=== PATIENT | male | born 1950 | race Caucasian/White ===

== ENCOUNTER 2018-11-26 06:11 | Day surgery (SDC) | payer MEDICARE, OTHER, SELFPAY ==
[2018-11-26 07:10] VITALS: BP 133/78; PULSE 57; RESP 16; TEMP 36.4; O2SAT 96
--- NOTE | 2018-11-26 07:25 | PM.PREOP ---
Pre-operative Note Interval Note History & Physical reviewed/Exam performed by Physician: Yes Changes to H&P: No
[2018-11-26] MEDS: PROPARACAINE 0.5% OPHTH SOL 2 DROPS EYE-OP (07:27)
[2018-11-26] MEDS: CATARACT EYE COMPOUND (10 DROPS/SYRINGE) 3 DROPS EYE-OP ×3 (07:37→07:47)
[2018-11-26] MEDS: PHENYLEPHRINE/LIDOCAINE VIAL (OR) 0.2 ML EYE-OP (08:11)
[2018-11-26] MEDS: MOXIFLOXACIN OPHTH DROPS 3 ML BOTTLE 2 DROPS INJ (08:11)
[2018-11-26] MEDS: BALANCED SALT IRRIG SOLN NO.2 15 ML 5 ML IRR (08:12)
[2018-11-26] MEDS: CHONDROIDTIN/SOD HYALURONATE 1.05 ML SYRINGE INTRAOCULA (08:12)
[2018-11-26] MEDS: TETRACAINE 0.5% OPHTH DROPS 15 ML 2 DROPS EYE-RIGHT (08:13)
[2018-11-26] MEDS: LIDOCAINE 2% INJ SDV 2 ML INJ (08:13)
[2018-11-26] MEDS: BALANCED SALT IRRIG SOLN NO.2 500 ML, EPINEPHrine 1 MG IRR (08:13)
--- NOTE | 2018-11-26 08:46 | P.OP_ITS ---
Procedure & Clinicians Procedure: Cataract extraction with intraocular lens implant, right Same procedure as scheduled: Yes Indications: Visually significant cortical age related cataract, right Surgeon: Bradford Becker Click Yes if Unassisted: Yes Anesthesia Type: MAC +/- Operative Notes Procedure in detail: The patient was brought to the operating suite. The correct patient, surgical site and lens were confirmed. 0.5 % tetracaine drops were placed in the right eye and the cornea was marked with a corneal reference mar ker. The patient was prepped and draped in the typical sterile manner. A lid speculum was placed in the eye. 2% lidocaine was placed on the eye. A paracentesis port was created with a side-port blade. 0.1 mL of 1% preservative free lidocaine with phenylephrine was injected into the anterior chamber. Viscoelastic was injected into the anterior chamber. A 2.6mm keratome was used to create a clear corneal temporal incision. Cystotome and Utrata forceps were used to create a continuous curvilinear capsulorrhexis. Balanced salt solution was used to hydrodissect the nucleus. Phacoemulsification was used to remove the lens. The capsular bag was inflated with viscoelastic and the cornea was marked at 094 degrees. A Richards ZCT 150+26.0D lens was inserted into the capsule and rotated to 094 degrees. Viscoelastic was removed and the wound hydrated. The wound was found to be leak free and the eye was assessed to be at normal physiologic pressure. 0.1mL Vigamox was injected into the anterior chamber and the lens was confirmed to be centered at at 094 degrees.. The lid speculum was removed and the patient left the operating room in excellent condition. Complications: none Condition: stable Disposition: same day surgery
[2018-11-26 08:47] VITALS: BP 117/67; PULSE 54; RESP 15; TEMP 36.2; O2SAT 95
== END 2018-11-26 09:10 | disposition home or self-care (01) ==
LOC: OR 06:19
PROVIDERS: PCP Student in an Organized Health Care Education/Training Program; Visit Provider Ophthalmology
PROC: (CPT 66984; principal; 2018-11-26 07:45)
DX: H25.011 Cortical age-related cataract, right eye (principal); I10 Essential (primary) hypertension; K21.9 Gastro-esophageal reflux disease without esophagitis; E78.00 Pure hypercholesterolemia, unspecified; F41.9 Anxiety disorder, unspecified
CPT/HCPCS: 66984; J0171; J2250; J3010; V2787

== ENCOUNTER 2018-12-10 08:07 | Day surgery (SDC) | payer MEDICARE, OTHER, SELFPAY ==
[2018-12-10] MEDS: CATARACT EYE COMPOUND (10 DROPS/SYRINGE) 3 DROPS EYE-OP (08:43)
[2018-12-10] MEDS: PROPARACAINE 0.5% OPHTH SOL 2 DROPS EYE-OP (08:43)
[2018-12-10 08:44] VITALS: BP 130/74; PULSE 52; RESP 15; TEMP 36.5; O2SAT 97
--- NOTE | 2018-12-10 09:20 | PM.PREOP ---
Pre-operative Note Interval Note History & Physical reviewed/Exam performed by Physician: Yes Changes to H&P: No
[2018-12-10] MEDS: TETRACAINE 0.5% OPHTH DROPS 4 ML 2 DROPS EYE-OP (09:59)
[2018-12-10] MEDS: CHONDROIDTIN/SOD HYALURONATE 1.05 ML SYRINGE INTRAOCULA (10:00)
[2018-12-10] MEDS: LIDOCAINE 2% INJ SDV 2 ML INJ (10:00)
[2018-12-10] MEDS: PHENYLEPHRINE/LIDOCAINE VIAL (OR) 0.2 ML EYE-OP (10:01)
[2018-12-10] MEDS: BALANCED SALT IRRIG SOLN NO.2 15 ML 5 ML IRR (10:01)
[2018-12-10] MEDS: BALANCED SALT IRRIG SOLN NO.2 500 ML, EPINEPHrine 1 MG IRR (10:02)
[2018-12-10] MEDS: MOXIFLOXACIN/PF 5 MG/ML VIAL EYE-OP (10:03)
--- NOTE | 2018-12-10 10:34 | PM.OP.1 ---
Procedure & Clinicians Procedure: Cataract extraction with intraocular lens implant, left Same procedure as scheduled: Yes Indications: Visually significant cortical age related cataract, left Surgeon: Bradford Becker Click Yes if Unassisted: Yes Anesthesia Type: MAC +/- Operative Notes Procedure in detail: The patient was brought to the operating suite. The correct patient, surgical site and lens were confirmed. 0.5 % tetracaine drops were placed in the left eye and the cornea was marked with a corneal reference marker with the patient in an upright position. The patient was prepped and draped in the typical sterile manner. A lid speculum was placed in the eye. 2% lidocaine was placed on the eye. A paracentesis port was created with a side-port blade. 0.1 mL of 1% preservative free lidocaine with phenylephrine was injected into the anterior chamber. Viscoelastic was injected into the anterior chamber. A 2.6mm keratome was used to create a clear corneal temporal incision. Cystotome and Utrata forceps were used to create a continuous curvilinear capsulorrhexis. Balanced salt solution was used to hydrodissect the nucleus. Phacoemulsification was used to remove the lens. The capsular bag was inflated with viscoelastic and the cornea was marked at 096 degrees . A Richards OBG059 +26.5D lens was inserted into the capsule and rotated to 096 degrees. Viscoelastic was removed and the wound hydrated. The wound was found to be leak free and the eye was assessed to be at normal physiologic pressure. 0.1mL Vigamox was injected into the anterior chamber and the lens was confirmed to be at 096 degrees. The lid speculum was removed and the patient left the operating room in excellent condition. Complications: none Condition: stable Disposition: same day surgery
[2018-12-10 10:39] VITALS: BP 96/62; PULSE 54; RESP 14; TEMP 36.3; O2SAT 97
[2018-12-10 10:45] VITALS: BP 105/62; PULSE 53; RESP 16; TEMP 36.6; O2SAT 97
== END 2018-12-10 10:55 | disposition home or self-care (01) ==
LOC: OR 08:12
PROVIDERS: PCP Student in an Organized Health Care Education/Training Program; Visit Provider Ophthalmology
PROC: (CPT 66984; principal; 2018-12-10 09:45)
DX: H25.12 Age-related nuclear cataract, left eye (principal); H25.012 Cortical age-related cataract, left eye; I10 Essential (primary) hypertension; E78.5 Hyperlipidemia, unspecified; F41.9 Anxiety disorder, unspecified
CPT/HCPCS: 66984; J0171; J2250; J3010; V2787